=== PATIENT | male | born 1975 | race Caucasian/White ===

== ENCOUNTER 2018-06-24 02:22 | Emergency (ER) | payer OTHER ==
[~2018-06-24] VITALS: Ht 185.4 cm; Wt 72.0 kg
[2018-06-24] MEDS ORDERED: GABAPENTIN 300 MG CAPSULE ONE (02:56)
[2018-06-24] MEDS ORDERED: KETOROLAC 30 MG/1 ML ONE (02:56)
[2018-06-24] MEDS ORDERED: KETOROLAC 30 MG/1 ML IM ONE (03:00)
[2018-06-24] MEDS ORDERED: GABAPENTIN 300 MG CAPSULE PO ONE (03:00)
[2018-06-24] MEDS ORDERED: LIDODERM 5% PATCH TD ONE ×2 (03:00→03:33)
--- NOTE | 2018-06-24 03:16 | NUR ---
PT MEDICATED FOR LEFT HIP PAIN. SEE EMAR.
[2018-06-24 03:39] VITALS: BP 124/78
== END 2018-06-24 03:42 | disposition home or self-care (01) ==
LOC: ED 03:35
DX: M54.42 Lumbago with sciatica, left side (principal); M25.552 Pain in left hip; G89.29 Other chronic pain; X58.XXXA Exposure to other specified factors, initial encounter; Y93.89 Activity, other specified; Y92.009 Unspecified place in unspecified non-institutional (private) residence as the place of occurrence of the external cause; Y99.8 Other external cause status
CPT/HCPCS: 96372; 99283; J1885